=== PATIENT | female | born 1965 | race Caucasian/White ===

== ENCOUNTER 2017-12-26 15:18 | Emergency (ER) | payer OTHER ==
[2017-12-26] MEDS ORDERED: KETOROLAC TROMETHAMINE INJ 30 MG/ML VIAL IV ONE (15:58)
--- NOTE | 2017-12-26 16:03 | ED.PDOC ---
History of Present Illness - General Chief Complaint: Abdominal Pain Stated Complaint: upper abdominal discomfort Time Seen by Provider: 12/26/17 15:51 Source: patient Exam Limitations: no limitations - History of Present Illness Initial Comments: Patient presents with abdominal pain since this morning. She said she was picking up a box at work and felt a "twinge" going from her abdomen to her sternum. It quickly went away. Later in the day she was picking up another box with the same motion and developed pain in a belt-like patter across the top of the abdomen. She also feels it in her left lower back. The pain is constant and feels like "after a hard ab workout". Worse with movement, better with rest. She had some nausea. No previous episodes quite like this. Last BM was this morning and was normal. Last meal was at noon and was normal. She is s/p appendectomy, cholecystectomy, and hysterectomy. No other complaints. Timing/Duration: 4-6 hours Severity: moderate Improving Factors: rest Worsening Factors: movement Associated Symptoms: denies symptoms Allergies/Adverse Reactions: Allergies Codeine Allergy (Verified 12/26/17 16:11) Other "my head blows up" Home Medications: Ambulatory Orders ALPRAZolam [Xanax] 0.25 mg PO Q6H PRN 09/10/13 Desvenlafaxine Succinate [Pristiq] 100 mg PO DAILY 09/10/13 Montelukast [Singulair] 10 mg PO DAILY 09/10/13 Propranolol HCl [Inderal Tab] 20 mg PO DAILY 09/10/13 Cyclobenzaprine HCl [Flexeril] 5 mg PO TID #10 tab 12/26/17 Pravastatin Sodium 20 mg PO BEDTIME 12/26/17 Review of Systems - Review of Systems Constitutional: States: no symptoms reported EENTM: States: no symptoms reported Respiratory: States: no symptoms reported Cardiology: States: no symptoms reported Gastrointestinal/Abdominal: States: no symptoms reported Genitourinary: States: no symptoms reported Musculoskeletal: States: see HPI Skin: States: no symptoms reported Neurological: States: no symptoms reported Endocrine: States: no symptoms reported Hematologic/Lymphatic: States: no symptoms reported Past Medical History (General) - Patient Medical History Hx Congestive Heart Failure: No Hx Diabetes: No Family Medical History - Family History Mother Living Status: Age at (years of age): 72 Cause of : colon cancer Hx Family Asthma: No Hx Family Congestive Heart Failure: No Hx Family Hypertension: Yes Hx Family Stroke: Yes Hx Family Diabetes: Yes Father Living Status: Cause of : COPD Hx Family Stroke: Yes Hx Cardiac Disease: Yes Hx Family Diabetes: Yes Physical Exam - Physical Exam General Appearance: Alert, No apparent distress Eye Exam: bilateral normal Ears, Nose, Throat: normal ENT inspection Neck: non-tender, full range of motion, supple Respiratory: lungs clear, normal breath sounds Cardiovascular/Chest: normal peripheral pulses, regular rate, rhythm, no edema Gastrointestinal/Abdominal: normal bowel sounds, non tender, soft Back Exam: normal inspection, no CVA tenderness Extremity: normal range of motion, non-tender, normal inspection, other - Cross leg raises and straight leg raises are negative. Doing a partial abdominal crunch does elicit the pain. 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, no motor/sensory deficits, alert, normal mood/affect, oriented x 3 Skin Exam: normal color Lymphatic: no adenopathy Progress - Progress Progress: 12/26/17 17:05 Laboratory Tests 12/26/17 12/26/17 12/26/17 16:20 16:20 16:20 WBC 7.0 RBC 4.60 Hgb 13.9 Hct 41.8 MCV 91.0 MCH 30.3 MCHC 33.3 RDW 13.9 Plt Count 367 MPV 7.1 L Absolute Neuts (auto) 3.90 Absolute Lymphs (auto) 2.40 Absolute Monos (auto) 0.40 Absolute Eos (auto) 0.20 Absolute Basos (auto) 0.10 Neutrophils % 56.1 Lymphocytes % 34.2 Monocytes % 5.5 Eosinophils % 3.0 Basophils % 1.2 Sodium 139 Potassium 4.4 Chloride 106 Carbon Dioxide 28 Anion Gap 9.4 L BUN 16 Creatinine 0.80 BUN/Creatinine Ratio 20.0 Random Glucose 92 Serum Osmolality 278.4 Calcium 9.7 Total Bilirubin 0.6 AST 19 ALT 16 Alkaline Phosphatase 56 Serum Total Protein 7.7 Albumin 4.2 Globulin 3.5 Albumin/Globulin Ratio 1.2 Lipase 26 Urine Color Urine Appearance Urine pH Ur Specific [place] Urine Protein Urine Glucose (UA) Urine Ketones Urine Blood Urine Nitrite Urine Bilirubin Urine Urobilinogen Ur Leukocyte Esterase Urine RBC Urine WBC Ur Epithelial Cells Urine Bacteria 12/26/17 16:35 WBC RBC Hgb Hct MCV MCH MCHC RDW Plt Count MPV Absolute Neuts (auto) Absolute Lymphs (auto) Absolute Monos (auto) Absolute Eos (auto) Absolute Basos (auto) Neutrophils % Lymphocytes % Monocytes % Eosinophils % Basophils % Sodium Potassium Chloride Carbon Dioxide Anion Gap BUN Creatinine BUN/Creatinine Ratio Random Glucose Serum Osmolality Calcium Total Bilirubin AST ALT Alkaline Phosphatase Serum Total Protein Albumin Globulin Albumin/Globulin Ratio Lipase Urine Color Yellow Urine Appearance Clear Urine pH 5.5 Ur Specific [place] 1.025 Urine Protein Negative Urine Glucose (UA) Negative Urine Ketones Negative Urine Blood Negative Urine Nitrite Negative Urine Bilirubin Negative Urine Urobilinogen 0.2 Ur Leukocyte Esterase Negative Urine RBC 0 Urine WBC 0 Ur Epithelial Cells 1-3 Urine Bacteria Rare No laboratory evidence for organ pathology or infection. Clinical exam indicates that this is musculoskeletal. Pain was significantly relieved by toradol 30 mg IV x one. Care and follow up instructions given. E.R. warnings given. Questions were elicited and answered. The patient voiced understanding and agreement with the plan. Departure - Departure Clinical Impression: Abdominal pain, Muscular abdominal pain in epigastric region Disposition: Discharge to Home or Self Care Condition: Good Departure Forms: ED Discharge - Pt. Copy, Patient Portal Self Enrollment Instructions: DI for Abdominal Pain-Adult, DI for Abdominal Muscle Strain Diet: other - as per your regular doctor Activity: increase activity as tolerated Referrals: Cody Mendoza MD [Primary Care Provider] - 1-2 Weeks Prescriptions: Cyclobenzaprine HCl [Flexeril] 5 mg PO TID #10 tab Home Medications: Ambulatory Orders ALPRAZolam [Xanax] 0.25 mg PO Q6H PRN 09/10/13 Desvenlafaxine Succinate [Pristiq] 100 mg PO DAILY 09/10/13 Montelukast [Singulair] 10 mg PO DAILY 09/10/13 Propranolol HCl [Inderal Tab] 20 mg PO DAILY 09/10/13 Cyclobenzaprine HCl [Flexeril] 5 mg PO TID #10 tab 12/26/17 Pravastatin Sodium 20 mg PO BEDTIME 12/26/17 Additional Instructions: Do not lift anything over 15 pounds for two weeks. After that, return to activity as tolerated. You may use ibuprofen or tylenol for pain. Do not drive or operative machinery after taking Flexeril (cyclobenzaprine). Return to the E.R. immediately for nausea, vomiting, increasing pain, change in bowel habits, blood in the urine, or if pain moves to another area on your body. After three days, apply heat to the painful areas 2-3 times per day. See your regular doctor early next week for follow up instructions.
[2017-12-26 16:04] VITALS: TEMP 97
[2017-12-26 16:55] VITALS: O2SAT 96
[2017-12-26 17:40] VITALS: BP 133/85
== END 2017-12-26 17:28 | disposition home or self-care (01) ==
LOC: ER 15:18
DX: R10.13 Epigastric pain (principal); Z88.5 Allergy status to narcotic agent
CPT/HCPCS: 36415; 80053; 81001; 83690; 85025; J1885

== ENCOUNTER → 2018-07-11 | Outpatient (CLI) | payer OTHER ==
--- NOTE | 2018-07-11 14:13 | MAM ---
EXAM DESCRIPTION: 3D Screening BILATERAL : Digital Mammography. CLINICAL HISTORY: 52 years Female SCREENING . No complaints. No personal or family history of breast cancer. Childbirth. Hysterectomy 8 years ago. HRT 5 or more years ago. Lifetime risk of developing breast cancer (Tyrer-Cuzick model)(%): 12.1. COMPARISON: 2-D digital screening bilateral mammography 01/04/2014. No prior reports available. TECHNIQUE: Bilateral CC and MLO projection full-field images, digital tomosynthesis mammographic technique. Bilateral digital 2-D full-field MLO images. CAD not available for tomosynthesis or 2-D images. FINDINGS: The breast parenchymal density pattern is: Scattered areas of fibroglandular density. No skin thickening or nipple retraction. Bilateral axillary lymph nodes. Intramammary nodes in the axillary tail left breast. Small microcalcifications bilaterally. No new focal, stellate mass or density, focal asymmetry , and no suspicious microcalcifications bilaterally. Stable mammograms compared to prior study. Taking into account, differences in mammographic technique. IMPRESSION: Benign exam. BIRAD CATEGORY: 2 BENIGN FINDINGS. RECOMMENDATIONS: FOLLOW UP: Routine digital bilateral mammographic screening, one year interval from June 2018. Written communication explaining the IMPRESSION and follow-up, will be mailed to the patient and referring health care provider. The FINDINGS and the FOLLOW-UP plan were reviewed in person with the patient after the examination. According to the [employer], yearly mammograms are recommended starting at age 40 and continuing as long as a woman is in good health. Any breast change noted on a breast self-exam should be reported promptly to the patient's healthcare provider. Breast MRI is recommended for women with an approximately 20-25% or greater lifetime risk of breast cancer, including women with a strong family history of breast or ovarian cancer and women who have been treated for Hodgkin's disease. A negative mammographic report should not delay tissue diagnosis in patients with significant clinical history or physical findings. Extremely dense breast tissue limits the sensitivity of digital mammography. Electronically signed by: Burke Live MD 07/11/2018 2:10 PM CDT
== END ==
LOC: MAMMO 11:00
PROVIDERS: ATTEND Family Medicine
DX: Z12.31 Encounter for screening mammogram for malignant neoplasm of breast (principal)

== ENCOUNTER → 2019-10-05 | Outpatient (CLI) | payer OTHER | LOC: GMAJ 10:29 | PROVIDERS: ATTEND Family Medicine | DX: I10 Essential (primary) hypertension (principal); E78.2 Mixed hyperlipidemia ==